=== PATIENT | female | born 1955 | race Caucasian/White ===

== ENCOUNTER → 2016-11-26 | Day surgery (SDC) | payer SELFPAY ==
[~2016-11-26] MED LIST: AMLO5TAB22 PO; ASPI81TA82 PO; CIPR500T4 PO; CPAP INH; FLAG500T PO; HYDR-3533 PO; MIDAZOLAM HCL 2 MG/2 ML VIAL ONE; PROPOFOL 200 MG/20 ML AMP IV ONE; SODIUM CHLOR 0.9% 250 ML BAG IV ONE; VANCOMYCIN HCL 1000 MG VIAL ONE; Z.0.OXYGEN INH; ZOFR4TAB3 SL
--- NOTE | 2016-11-26 14:39 | TN ---
cc: AQUILES SHIELDS M.D. DATE OF SURGERY: 11/26/2016 PREOPERATIVE DIAGNOSIS 1. Previously palpable left breast mass with associated mammographic abnormality. 2. Pathology report non-concordant with the imaging findings. POSTOPERATIVE DIAGNOSIS 1. Previously palpable left breast mass with associated mammographic abnormality. 2. Pathology report non-concordant with the imaging findings. PROCEDURE PERFORMED Needle-localized left breast biopsy. SURGEON Aquiles Shields MD SHAFTING CLEANER Leonie Canales, [facility] ANESTHESIA General LMA. COMPLICATIONS None. INDICATIONS FOR PROCEDURE Ms. Monte is a pleasant 61-year-old female who felt a mass in her left breast. She went for imaging which confirmed a mass that was concerning and biopsy was warranted. She underwent percutaneous biopsy which apparently caused a resolution of the mass and on subsequent pathology the radiologist felt that the report was not concurrent with what was seen on imaging. He recommended a formal open biopsy for additional tissue. The patient was referred for surgical evaluation. The patient was seen and evaluated in the office and offered needle-localized left breast biopsy and she was agreeable. DETAILS OF PROCEDURE The patient was identified, brought to the operating room and placed supine on the operating table. After adequate general anesthesia was achieved with LMA, the left breast was prepped and draped in standard surgical fashion. 0.25% Marcaine was injected into the skin and subcutaneous tissue in the left breast. The patient had a wire localization from the 3 o'clock position in the left breast and where the wire was sitting retroareolar. 0.25% Marcaine was injected and a periareolar incision was made. Subcutaneous tissue was dissected with sharp dissection. Next, a subcutaneous flap was raised under the nipple to the base of the wire. Once the base of the wire was achieved, generous margins on both sides of the wire were obtained using electrocautery dissection. The entire specimen was removed in toto without disturbing the wire. There was a generous amount of breast tissue circumferentially around the wire. A short stitch was placed superior and the wire demarcated the medial approach. Specimen was sent to radiology where Dr. Cooper called back stating that the clip was present within the specimen. Wound was copiously irrigated with normal saline solution. Additional local anesthetic was injected to the wound and then the wound was closed in two layers using a 4-0 Vicryl. The patient tolerated the procedure well, was awakened and brought to recovery in stable condition. Please note the [employer] certified surgical tech/first assistant was medically necessary due to her specialized surgical skills and extensive knowledge of my surgical technique. MD ZONIA Dorsey/MILENA /2:21 PM /2:27 PM [place]
== END | disposition home or self-care (01) ==
LOC: ESDC 09:25
PROVIDERS: ATTEND Surgery Trauma Surgery
DX: N63.20 Unspecified lump in the left breast, unspecified quadrant (principal)
CPT/HCPCS: 00400; 19125; 88307; J2250; J3010; J3370; J7050